=== PATIENT | male | born 1960 | race Caucasian/White ===

== ENCOUNTER 2018-08-08 09:31 | Emergency (ER) | payer OTHER ==
[~2018-08-08] VITALS: Ht 185.4 cm; Wt 117.9 kg
[~2018-08-08 09:31] MED LIST: ASPI325; ASPI325EC PO; AZIT250 PO; BENZ100A PO; CYCL10 PO; ESOM20; HYDACE10B PO; HYDACE5; LORA1 PO; NAPR500EC PO; OXYC15ER PO; PRAM.125; PREG50; ROPI1 PO; TRAZ50; TRIHYD253B PO; VENL75ER PO; ZOLP12.5 PO
[2018-08-08] MEDS ORDERED: Mobic15 MG PO (10:12)
[2018-08-08] MEDS ORDERED: Calan40 MG PO (10:12)
[2018-08-08] MEDS ORDERED: BUSP10 PO (10:13)
[2018-08-08] MEDS ORDERED: CYCL10 PO (10:13)
[2018-08-08] MEDS ORDERED: HYDCHL12.5 PO (10:20)
== END 2018-08-08 13:36 | disposition home or self-care (01) ==
LOC: ER 09:31
DX: S86.011A Strain of right Achilles tendon, initial encounter (principal); S86.811A Strain of other muscle(s) and tendon(s) at lower leg level, right leg, initial encounter; I10 Essential (primary) hypertension; G43.909 Migraine, unspecified, not intractable, without status migrainosus; Z87.891 Personal history of nicotine dependence; Z79.899 Other long term (current) drug therapy; Z79.82 Long term (current) use of aspirin; W01.0XXA Fall on same level from slipping, tripping and stumbling without subsequent striking against object, initial encounter
CPT/HCPCS: 29505; 93971; 99283-25

== ENCOUNTER 2018-10-04 06:19 | Day surgery (SDC) | payer OTHER ==
[~2018-10-04] VITALS: Ht 185.4 cm; Wt 120.1 kg
[~2018-10-04 06:19] MED LIST changes: +BUSP10 PO; +Calan40 MG PO; +HYDCHL12.5 PO; +MOTION RELIEF25 MG PO; +Mobic15 MG PO; +Omeprazole20 M1 PO; +Ropinirole HCl1 MG PO; +VERA80 PO
[2018-10-04] MEDS ORDERED: OXYC10ER PO (06:37)
== END 2018-10-04 08:10 | disposition home or self-care (01) ==
LOC: ORSCSDS 06:19
PROVIDERS: Ophthalmology
PROC: 08RJ3JZ Replacement of Right Lens with Synthetic Substitute, Percutaneous Approach (ICD-10-PCS; principal; 2018-10-04 07:30)
DX: H25.11 Age-related nuclear cataract, right eye (principal); I10 Essential (primary) hypertension; J44.9 Chronic obstructive pulmonary disease, unspecified; G47.33 Obstructive sleep apnea (adult) (pediatric); Z79.899 Other long term (current) drug therapy; Z79.82 Long term (current) use of aspirin; E66.9 Obesity, unspecified; Z68.34 Body mass index [BMI] 34.0-34.9, adult
CPT/HCPCS: J2001; J2250; J3010; J3301; J7120; V2632

== ENCOUNTER 2018-11-15 06:34 | Day surgery (SDC) | payer OTHER ==
[~2018-11-15] VITALS: Ht 185.4 cm; Wt 265.6 kg
[~2018-11-15 06:34] MED LIST changes: +OXYC10ER PO
[2018-11-15] MEDS ORDERED: HYDCHL12.5 PO (07:02)
[2018-11-15] MEDS ORDERED: BUSP10 PO (07:03)
== END 2018-11-15 08:25 | disposition home or self-care (01) ==
LOC: ORSCSDS 06:34
PROVIDERS: Ophthalmology
PROC: 08RK3JZ Replacement of Left Lens with Synthetic Substitute, Percutaneous Approach (ICD-10-PCS; principal; 2018-11-15 08:00)
DX: H25.12 Age-related nuclear cataract, left eye (principal); I10 Essential (primary) hypertension; J44.9 Chronic obstructive pulmonary disease, unspecified; K21.9 Gastro-esophageal reflux disease without esophagitis; G47.33 Obstructive sleep apnea (adult) (pediatric); Z79.899 Other long term (current) drug therapy; Z79.82 Long term (current) use of aspirin; E66.9 Obesity, unspecified; Z68.35 Body mass index [BMI] 35.0-35.9, adult
CPT/HCPCS: J2001; J2250; J3010; J3301; J7120; V2632

== ENCOUNTER 2020-05-08 06:00 | Day surgery (SDC) | payer BC ==
[~2020-05-08] VITALS: Ht 185.4 cm; Wt 126.5 kg
[~2020-05-08 06:00] MED LIST changes: +ALBU90OI INH; +LOSA25 PO; +MECL25 PO; +MELADOX3 M1 PO; +MULVITA PO
--- NOTE | 2020-05-08 06:53 | NUR ---
History, Chart, Medications and Allergies reviewed before start of procedure. Lungs clear T/O to Auscultation. Patient confirms NPO status and agrees with scheduled surgery. Pre-Op teaching done. Pt verbalizes understanding. Patient reports completing Chlorhexadine shower X2 prior to admission to hospital. PT C/O CHRONIC LOWER BACK PAIN. REPORTS PAIN 5/10 AT THIS TIME.
--- NOTE | 2020-05-08 09:57 | NUR ---
Ambulatory in Day SurgeryPatient up to Ambulate independently. Gait steady. Discharge instructions reviewed with patient. Patient verbalizes understanding. Copy given to patient to take home. History, Chart, Medications and Allergies reviewed before start of procedure.Patient States Post-Procedure ride home has been arranged. Discharged via wheelchair to private car for ride home.
== END 2020-05-08 09:58 | disposition home or self-care (01) ==
LOC: ORSCMMR 06:00 → ORD 06:00 → ORSCMMR 06:01 → ORD 07:30
PROVIDERS: Surgery
PROC: 0WUF0JZ Supplement Abdominal Wall with Synthetic Substitute, Open Approach (ICD-10-PCS; principal; 2020-05-08 07:30)
DX: K42.9 Umbilical hernia without obstruction or gangrene (principal); E66.9 Obesity, unspecified; Z68.36 Body mass index [BMI] 36.0-36.9, adult; I10 Essential (primary) hypertension; G47.33 Obstructive sleep apnea (adult) (pediatric); G25.81 Restless legs syndrome; F41.9 Anxiety disorder, unspecified; K21.9 Gastro-esophageal reflux disease without esophagitis; Z79.899 Other long term (current) drug therapy; Z87.891 Personal history of nicotine dependence
CPT/HCPCS: A9270; C1781; J0330; J0690; J1100; J2250; J2405; J2704; J2710; J3010; J7120

== ENCOUNTER 2020-11-20 10:35 | Emergency (ER) | payer OTHER, BC ==
[~2020-11-20] VITALS: Ht 185.4 cm; Wt 122.5 kg
[2020-11-20] MEDS ORDERED: Norco 5-325 Ta1 EACH PO (11:04)
[2020-11-20] MEDS ORDERED: IBUP800 PO (11:04)
== END 2020-11-20 11:16 | disposition home or self-care (01) ==
LOC: ER 10:35
DX: M25.552 Pain in left hip (principal); M54.2 Cervicalgia; Z79.899 Other long term (current) drug therapy
CPT/HCPCS: 96372; 99283; A9270; J1885

== ENCOUNTER 2020-11-23 12:19 | Emergency (ER) | payer OTHER, BC ==
[~2020-11-23] VITALS: Ht 185.4 cm; Wt 122.5 kg
[~2020-11-23 12:19] MED LIST changes: +IBUP800 PO; +Norco 5-325 Ta1 EACH PO
[2020-11-23] MEDS ORDERED: METPRE4DP PO (16:50)
== END 2020-11-23 17:22 | disposition home or self-care (01) ==
LOC: ER 12:19
DX: S39.012A Strain of muscle, fascia and tendon of lower back, initial encounter (principal); G89.29 Other chronic pain; I10 Essential (primary) hypertension; J44.9 Chronic obstructive pulmonary disease, unspecified; Z88.8 Allergy status to other drugs, medicaments and biological substances; Z88.0 Allergy status to penicillin; Z79.899 Other long term (current) drug therapy; Z87.891 Personal history of nicotine dependence; X50.0XXA Overexertion from strenuous movement or load, initial encounter
CPT/HCPCS: 72148; 96374; 99283-25; J1170

== ENCOUNTER → 2025-04-15 | Outpatient (CLI) | payer OTHER ==
[~2025-04-15] MED LIST changes: +METPRE4DP PO
[2025-04-15 09:40] LABS: BASOPHILS ABSOLUTE AUTO 0.07 K/mm3 (0.00-0.23); BASOPHILS PERCENT AUTO 1 % (0-2); EOSINOPHILS ABSOLUTE AUTO 0.07 K/mm3 (0.00-0.68); EOSINOPHILS PERCENT AUTO 1 % (0-6); Hematocrit 48.2 % (37.0-53.0); Hemoglobin 16.9 g/dL (13.5-17.5); IMMATURE GRAN ABSOLUTE AUTO 0.03 K/mm3 (0.00-0.10); IMMATURE GRAN PERCENT AUTO 0 % (0-1); LYMPHOCYTES ABSOLUTE AUTO 1.55 K/mm3 (0.84-5.20); LYMPHOCYTES PERCENT AUTO 22 % (21-46); MONOCYTES ABSOLUTE AUTO 0.99 K/mm3 (0.16-1.47); MONOCYTES PERCENT AUTO 14 % (4-13); Mean Corpuscular HGB Conc 35.1 g/dL (31.5-36.5); Mean Corpuscular Volume 89 fL (80-100); NEUTROPHILS ABSOLUTE AUTO 4.47 K/mm3 (1.96-9.15); NEUTROPHILS PERCENT AUTO 62 % (41-73); NRBC ABSOLUTE 0.00 K/mm3 (0.00-0.02); NRBC Auto 0.0 /100 WBC (0.0-0.2); Platelet Count 248 K/mm3 (150-400); RDW Coefficient Variation 12.8 % (11.7-14.2); RDW Standard Deviation 41.5 fL (35.1-46.3)
[2025-04-15 09:55] LABS: Alanine Aminotransfer (ALT/SGP 60.0 U/L (12-78); Albumin, Blood 3.9 g/dL (3.4-5.0); Albumin/Globulin Ratio 1.1 (0.8-1.8); Anion Gap 16.0 mmol/L (3-11); Aspartate Aminotrans (AST/SGOT 30.0 U/L (12-37); Bilirubin, Total 0.7 mg/dL (0.1-1.0); Blood Urea Nitrogen 17.0 mg/dL (8-24); CO2, Blood 24.0 mmol/L (21-32); Calcium, Blood 9.1 mg/dL (8.5-10.1); Chloride, Blood 99.0 mmol/L (98-108); Creatinine, Blood 0.9 mg/dL (0.60-1.20); Globulin, Blood 3.5 g/dL (2.2-4.0); Glucose, Blood 100.0 mg/dL (70-99); Potassium, Blood 3.7 mmol/L (3.5-5.5); Sodium, Blood 135.0 mmol/L (136-145); Total Protein, Blood 7.4 g/dL (6.4-8.2)
== END ==
LOC: LAB 09:36 → LAB SHORT 09:36
PROVIDERS: Physician Assistant Medical
DX: R10.31 Right lower quadrant pain (principal)
CPT/HCPCS: 80053; 85025